=== PATIENT | male | born 1930 | race Caucasian/White ===

== ENCOUNTER 2017-01-05 09:51 | Emergency (ER) | payer MEDICARE ==
--- NOTE | 2017-01-05 10:04 | ED ---
General Adult HPI - General Chief complaint: Altered Mental Status Stated complaint: Fall-Altered Mental Status Time Seen by Provider: 01/05/17 09:51 Source: family, EMS, RN notes reviewed Mode of arrival: EMS Limitations: altered mental status, physical limitation - History of Present Illness Initial comments: Patient is an 86-year-old male presenting to the emergency department for change in mental status. Patient is unresponsive and history comes from . states patient did fall in the middle of the night and she did help him get back into bed. No known serious injury. did see the patient briefly this morning and felt she was acting normal. Patient then heard a large boom sometime after 9:00 and patient was on the ground. EMS states patient was alert but nonverbal. Patient did follow some commands. Patient is nonverbal at this time and does not follow commands. - Related Data Home Medications Medication Instructions Recorded Confirmed Gemfibrozil [Lopid] 600 mg PO BID 09/07/14 01/05/17 Omeprazole [PriLOSEC] 20 mg PO DAILY 09/07/14 01/05/17 Vit C/E/Zn/Coppr/Lutein/Zeaxan 1 tab PO BID 09/07/14 01/05/17 [Preservision Areds 2 Softgel] amLODIPine BESYLATE [Amlodipine 10 mg PO HS 09/07/14 01/05/17 Besylate] Carbidopa-Levodopa 25-100 mg 0.5 tab PO TID 12/13/16 01/05/17 [Sinemet 25-100] ALPRAZolam [Xanax] 0.25 mg PO BID PRN 01/05/17 01/05/17 Citalopram Hydrobromide [CeleXA] 20 mg PO DAILY 01/05/17 01/05/17 Donepezil [Aricept] 20 mg PO HS 01/05/17 01/05/17 Gabapentin [Neurontin] 100 mg PO BID 01/05/17 01/05/17 Multivitamins, Thera [Multivitamin 1 tab PO DAILY 01/05/17 01/05/17 (formulary)] Zolpidem [Ambien] 10 mg PO HS PRN 01/05/17 01/05/17 Allergies Allergy/AdvReac Type Severity Reaction Status Date / Time chlorpheniramine Allergy Unknown Verified 01/05/17 10:22 pseudoephedrine Allergy Unknown Verified 01/05/17 10:22 Sulfa (Sulfonamide Allergy Rash/Hives Verified 01/05/17 10:22 Antibiotics) Review of Systems ROS Statement: Those systems with pertinent positive or pertinent negative responses have been documented in the HPI. ROS Other: All systems not noted in ROS Statement are negative. 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 MACULAR DEGENERATION, SPOUSE STATES THAT HE GET DIZZY AND SHAKES AT TIMES WHEN HE GETS UP. HX OF KIDNEY STONES, PREV. SLEEP APNEA, NONE NOW POST SX. History of Any Multi-Drug Resistant Organisms: None Reported Past Surgical History: Cholecystectomy, Heart Catheterization, Orthopedic Surgery, Tonsillectomy Additional Past Surgical History / Comment(s): HIATAL HERNIA REPAIR, SOFÍA ROTATOR CUFF REPAIR, MULT LITHOTRIPSY, LEFT CAROTIDENDARTECTOMY, SX TO FIX SLEEP APNEA, CYTOSCOPY FOR PROSTATE ISSUES Past Anesthesia/Blood Transfusion Reactions: No Reported Reaction Past Psychological History: No Psychological Hx Reported Smoking Status: Former smoker Past Alcohol Use History: None Reported Past Drug Use History: None Reported - Past Family History Mother Family Medical History: No Reported History General Exam Limitations: altered mental status, physical limitation General appearance: lethargic, other (Patient does withdraw to pain. Gag reflex is present.) Head exam: Present: atraumatic, normocephalic Eye exam: Present: normal appearance, PERRL, other (Spontaneous oscalating eye movements) ENT exam: Present: normal oropharynx, other (Gag reflex is present) Neck exam: Present: other (C-collar is in place. No step-off.) Respiratory exam: Present: normal lung sounds bilaterally Cardiovascular Exam: Present: bradycardia GI/Abdominal exam: Present: soft. Absent: tenderness Extremities exam: Present: normal inspection Neurological exam: Present: altered Expanded Neurological exam: Present: protecting the airway Eye Response: (1) no response Motor Response: (4) withdraws to pain Verbal Response: (1) no verbal response Psychiatric exam: Present: other (Nonverbal) Skin exam: Absent: rash Course Vital Signs 01/05/17 01/05/1717 09:56 10:30 11:00 Temperature 97.7 F Pulse Rate 55 L 46 L 47 L Respiratory 18 18 18 Rate Blood Pressure 184/81 155/69 164/77 O2 Sat by Pulse 99 99 98 Oximetry 01/05/17 11:55 Temperature 96.7 F L Pulse Rate 49 L Respiratory 14 Rate Blood Pressure 167/81 O2 Sat by Pulse 99 Oximetry - Reevaluation(s) Reevaluation #1: 01/05/17 12:01 Call received from radiologist with concerning head CT results. and son were updated. Case was discussed with Dr. Howard at [facility]. He will likely except transfer however needs to talk to trauma first. 01/05/17 12:15 Dr. Howard called back and will accept transfer. EKG Findings - EKG Comments: EKG Findings:: Sinus bradycardia 49. CA 188. QRS 146. QT 534. QTC 582. Normal axis. Right bundle branch block. Nonspecific ST-T. Motion artifact is present. Procedures - Intubation Time Out Performed: Yes Sedative: Versed Mg Given: 4 Paralytic: Succinylcholine Mg Given: 80 Laryngoscope: García Size: 3 ET Tube Size: 7.5 Tube Placement Confirmation: visualized tube passing through cords, equal breath sounds bilaterally, no breath sounds over epigastrium, confirmation by capnometry Patient Tolerated Procedure: well, no complications Intubation Complications: none Medical Decision Making - Lab Data Result diagrams: 01/05/17 10:02 01/05/17 10:02 Lab Results 01/05/17 01/05/17 01/05/17 Range/Units 09:53 10:02 10:02 WBC 4.0 (3.8-10.6) k/uL RBC 4.23 L (4.30-5.90) m/uL Hgb 12.7 L (13.0-17.5) gm/dL Hct 39.5 (39.0-53.0) % MCV 93.5 (80.0-100.0) fL MCH 30.0 (25.0-35.0) pg MCHC 32.1 (31.0-37.0) g/dL RDW 14.2 (11.5-15.5) % Plt Count 358 (150-450) k/uL Neutrophils % 71 % Lymphocytes % 15 % Monocytes % 7 % Eosinophils % 2 % Basophils % 0 % Neutrophils # 2.8 (1.3-7.7) k/uL Lymphocytes # 0.6 L (1.0-4.8) k/uL Monocytes # 0.3 (0-1.0) k/uL Eosinophils # 0.1 (0-0.7) k/uL Basophils # 0.0 (0-0.2) k/uL PT (9.0-12.0) sec INR (<1.2) APTT (22.0-30.0) sec Sodium (137-145) mmol/L Potassium (3.5-5.1) mmol/L Chloride (98-107) mmol/L Carbon Dioxide (22-30) mmol/L Anion Gap mmol/L BUN (9-20) mg/dL Creatinine (0.66-1.25) mg/dL Est GFR (MDRD) Af Amer (>60 ml/min/1.73 sqM) Est GFR (MDRD) Non-Af (>60 ml/min/1.73 sqM) Glucose (74-99) mg/dL POC Glucose (mg/dL) 96 (75-99) mg/dL POC Glu Trackwalker ID Michelle Alexis Calcium (8.4-10.2) mg/dL Total Bilirubin (0.2-1.3) mg/dL AST (17-59) U/L ALT (21-72) U/L Alkaline Phosphatase (38-126) U/L Total Creatine Kinase 27 L (55-170) U/L CK-MB (CK-2) 0.5 (0.0-2.4) ng/mL CK-MB (CK-2) Rel Index 1.9 Troponin I <0.012 (0.000-0.034) ng/mL Total Protein (6.3-8.2) g/dL Albumin (3.5-5.0) g/dL Urine Color Urine Appearance (Clear) Urine pH (5.0-8.0) Ur Specific [place] (1.001-1.035) Urine Protein (Negative) Urine Glucose (UA) (Negative) Urine Ketones (Negative) Urine Blood (Negative) Urine Nitrite (Negative) Urine Bilirubin (Negative) Urine Urobilinogen (<2.0) mg/dL Ur Leukocyte Esterase (Negative) Urine Opiates Screen (NotDetected) Ur Oxycodone Screen (NotDetected) Urine Methadone Screen (NotDetected) Ur Propoxyphene Screen (NotDetected) Ur Barbiturates Screen (NotDetected) U Tricyclic Antidepress (NotDetected) Ur Phencyclidine Scrn (NotDetected) Ur Amphetamines Screen (NotDetected) U Methamphetamines Scrn (NotDetected) U Benzodiazepines Scrn (NotDetected) Urine Cocaine Screen (NotDetected) U Marijuana (THC) Screen (NotDetected) 01/05/17 01/05/17 01/05/17 Range/Units 10:02 10:02 11:43 WBC (3.8-10.6) k/uL RBC (4.30-5.90) m/uL Hgb (13.0-17.5) gm/dL Hct (39.0-53.0) % MCV (80.0-100.0) fL MCH (25.0-35.0) pg MCHC (31.0-37.0) g/dL RDW (11.5-15.5) % Plt Count (150-450) k/uL Neutrophils % % Lymphocytes % % Monocytes % % Eosinophils % % Basophils % % Neutrophils # (1.3-7.7) k/uL Lymphocytes # (1.0-4.8) k/uL Monocytes # (0-1.0) k/uL Eosinophils # (0-0.7) k/uL Basophils # (0-0.2) k/uL PT 10.8 (9.0-12.0) sec INR 1.1 (<1.2) APTT 24.4 (22.0-30.0) sec Sodium 140 (137-145) mmol/L Potassium 4.0 (3.5-5.1) mmol/L Chloride 105 (98-107) mmol/L Carbon Dioxide 28 (22-30) mmol/L Anion Gap 7 mmol/L BUN 15 (9-20) mg/dL Creatinine 0.86 (0.66-1.25) mg/dL Est GFR (MDRD) Af Amer >60 (>60 ml/min/1.73 sqM) Est GFR (MDRD) Non-Af >60 (>60 ml/min/1.73 sqM) Glucose 86 (74-99) mg/dL POC Glucose (mg/dL) (75-99) mg/dL POC Glu Trackwalker ID Calcium 9.8 (8.4-10.2) mg/dL Total Bilirubin 0.4 (0.2-1.3) mg/dL AST 22 (17-59) U/L ALT 21 (21-72) U/L Alkaline Phosphatase 272 H (38-126) U/L Total Creatine Kinase (55-170) U/L CK-MB (CK-2) (0.0-2.4) ng/mL CK-MB (CK-2) Rel Index Troponin I (0.000-0.034) ng/mL Total Protein 6.5 (6.3-8.2) g/dL Albumin 3.6 (3.5-5.0) g/dL Urine Color Light Yellow Urine Appearance Clear (Clear) Urine pH 8.0 (5.0-8.0) Ur Specific [place] 1.007 (1.001-1.035) Urine Protein Negative (Negative) Urine Glucose (UA) Negative (Negative) Urine Ketones Negative (Negative) Urine Blood Negative (Negative) Urine Nitrite Negative (Negative) Urine Bilirubin Negative (Negative) Urine Urobilinogen <2.0 (<2.0) mg/dL Ur Leukocyte Esterase Negative (Negative) Urine Opiates Screen Not Detected (NotDetected) Ur Oxycodone Screen Not Detected (NotDetected) Urine Methadone Screen Not Detected (NotDetected) Ur Propoxyphene Screen Not Detected (NotDetected) Ur Barbiturates Screen Not Detected (NotDetected) U Tricyclic Antidepress Detected H (NotDetected) Ur Phencyclidine Scrn Not Detected (NotDetected) Ur Amphetamines Screen Not Detected (NotDetected) U Methamphetamines Scrn Not Detected (NotDetected) U Benzodiazepines Scrn Detected H (NotDetected) Urine Cocaine Screen Not Detected (NotDetected) U Marijuana (THC) Screen Not Detected (NotDetected) - Radiology Data Radiology results: image reviewed (Chest x-ray shows no acute process. X-ray of the pelvis shows no acute process. Computed tomography scan of the brain shows small left greater than right frontal subarachnoid hemorrhage. Tiny right subdural hemorrhage only 3-4 mm thick. The basilar artery tip is also prominent. Computed tomography scan of the cervical spine shows degenerative changes. No acute fracture.) Interpreted by me: Post endotracheal intubation with tube in appropriate place. Critical Care Time Critical Care Time: Yes Total Critical Care Time: 38 Disposition Clinical Impression: Subdural hemorrhage, Subarachnoid hemorrhage Disposition: OTHER INSTITUTION NOT DEFINED Condition: Critical Referrals: Nimesh Fontaine MD [Primary Care Provider] - 1-2 days Time of Disposition: 12:16 - Out of Hospital Transfer - Req. Specs Out of Hospital Transfer - Requested Specifics: Other Emergency Center
[2017-01-05 10:05] LABS: Glucose,Whole Blood 96 mg/dL (75-99)
[2017-01-05 10:29] LABS: Basophils % (A) 0 %; CHCM 33.3; Eosinophils # (A) 0.1 k/uL (0-0.7); Eosinophils % (A) 2 %; HCT 39.5 % (39.0-53.0); HDW 2.67; HGB 12.7 gm/dL (13.0-17.5); Luc # (Auto) 0.17; Luc % (Auto) 4; Lymphocytes # (A) 0.6 k/uL (1.0-4.8); Lymphocytes % (A) 15 %; MCHC 32.1 g/dL (31.0-37.0); MCV 93.5 fL (80.0-100.0); Mean Platelet Volume 6.6; Monocytes # (A) 0.3 k/uL (0-1.0); Monocytes % (A) 7 %; Neutrophils # (A) 2.8 k/uL (1.3-7.7); Neutrophils % (A) 71 %; RBC 4.23 m/uL (4.30-5.90); RDW 14.2 % (11.5-15.5); WBC (Perox) 3.96
[2017-01-05 10:37] LABS: INR 1.1 (<1.2); Partial Thromboplastin Time 24.4 sec (22.0-30.0); Prothrombin Time 10.8 sec (9.0-12.0)
[2017-01-05 10:42] LABS: ALT 21 U/L (21-72); AST 22 U/L (17-59); Alkaline Phosphatase 272 U/L (38-126); Anion Gap 7 mmol/L; Blood Urea Nitrogen 15 mg/dL (9-20); Calcium 9.8 mg/dL (8.4-10.2); Carbon Dioxide 28 mmol/L (22-30); Chloride 105 mmol/L (98-107); Glucose 86 mg/dL (74-99); Non-African American GFR(MDRD) >60 (>60 ml/min/1.73 sqM); Sodium 140 mmol/L (137-145); Total Bilirubin 0.4 mg/dL (0.2-1.3); Total Protein 6.5 g/dL (6.3-8.2)
[2017-01-05 10:50] LABS: Creatine Kinase 27 U/L (55-170)
[2017-01-05 11:02] LABS: Creatine Kinase MB 0.5 ng/mL (0.0-2.4); Troponin I <0.012 ng/mL (0.000-0.034)
--- NOTE | 2017-01-05 11:42 | XR ---
EXAMINATION TYPE: XR pelvis AP view DATE OF EXAM: 01/05/2017 CLINICAL HISTORY: Fall injury today with pain. TECHNIQUE: A single AP view of the pelvis is obtained. COMPARISON: None. FINDINGS: There is no acute fracture/dislocation evident in the pelvis. There is mild axial joint sp bree loss in both hips. Right sacroiliac joint is not well-visualized due to demineralization and slig ht rotation. Pubic symphysis is intact. Vascular calcification bilateral pelvis and left groin region is present. IMPRESSION: There is no acute fracture or dislocation in the pelvis.
--- NOTE | 2017-01-05 11:45 | XR ---
EXAMINATION TYPE: XR chest 1V portable DATE OF EXAM: 01/05/2017 COMPARISON: Prior chest x-ray 12/13/2016 HISTORY: Trauma, unresponsive, altered mental status TECHNIQUE: Single frontal view of the chest is obtained. FINDINGS: There is no focal air space opacity, pleural effusion, or pneumothorax seen. The cardiac silhouette size is within normal limits. Distal left clavicle shows resection change as on prior, po stop change also noted to the right shoulder. Patient is rotated. There are overlying cardiac leads. The osseous structures are intact. The aorta is dense. Surgical clips present in the right upper quad rant. IMPRESSION: No acute process. Expiratory rotated exam, follow-up as indicated
--- NOTE | 2017-01-05 11:56 | CT ---
EXAMINATION TYPE: CT brain lavelle vivar DATE OF EXAM: 01/05/2017 COMPARISON: Brain 11/13/2014 HISTORY: 86-year-old male Fall, altered mental status CT DLP: 1711 mGycm Automated exposure control for dose reduction was used. Technique: Examination of the head was done in axial plane without intravenous contrast. Coronal and sagittal reconstructions performed. CT of the cervical spine was obtained in axial plane without intravenous injection of contrast mater ial. Coronal and sagittal reformatted images were obtained from the axial views for evaluation of f ractures, spinal alignment and canal. FINDINGS: Head: There is mild subarachnoid hemorrhage in the anterior left frontal lobe, refer to axial image 39 and 43. Minimal subarachnoid blood in the anterior right paramedian frontal lobe, axial image 43 and 44. Trace extra-axial acute blood along the lateral right frontal convexity, axial image 37 measuring 3 t o 4 mm thick. Stable [id number]-[id number] ventriculomegaly as compared to 11/13/2014 and moderate patchy white matter hy podensities in both cerebral hemispheres. Rounded prominence at the basilar terminus measuring 5 mm, axial image 24. No evidence for acute ischemic change, mass, mass effect, or midline shift. No effacement of cerebral sulci or basal subarachnoid cisterns. Small air-fluid level in the right sphenoid sinus. Mastoid air cells appear well pneumatized. Orbits and globes appear intact. No calvarial fracture. Cervical spine: No craniocervical junction abnormality, predental space widening, or prevertebral soft tissue swellin g. Degenerative changes at the C1-C2 dens articulation. Moderate to advanced disc/endplate degenerative change from C3 through T1 levels. Grade 1 anterolisthesis at C7-T1 with facet and uncovertebral joint arthropathy throughout. Very minimal mild narrowing of the spinal canal secondary to disc osteophyte complexes throughout. No acute fracture seen. Very minimal mild neuroforaminal stenosis. Sagittal and coronal reformatted images confirm above findings. COMBINED IMPRESSION: BRAIN: 1. Small amount of acute subarachnoid hemorrhage in the left greater than right frontal lobes. 2. Trace 3 to 4 mm thick acute subdural hematoma along the lateral aspect of the right frontal convex ity. 3. No mass effect or midline shift. 4. When able, patient can have a follow-up CTA or MRA to exclude a 5 mm basilar tip aneurysm. Above findings called to Dr. Alexis in the ER at 11:50 AM. 6. Stable ventriculomegaly likely due to central cerebral atrophy. 7. Small air-fluid level in the right sphenoid sinus could represent acute sinusitis. CERVICAL SPINE: 8. No acute fracture of the cervical spine. Moderate to advanced multilevel spondylotic change. Degen erative grade 1 anterolisthesis at C7-T1.
[2017-01-05] MEDS ORDERED: MIDAZOLAM 2 MG/2 ML VIAL IV STA (11:57)
[2017-01-05] MEDS ORDERED: SUCCINYLCHOLINE CHLORIDE VIAL 200 MG/10 ML VIAL IV STA (11:57)
[2017-01-05] MEDS ORDERED: LORazepam 2 MG/ML INJ IV PRN ×2 (11:58)
[2017-01-05 11:59] LABS: Appearance,Urine Clear (Clear); Bilirubin,Urine Negative (Negative); Glucose,Urine (UA) Negative (Negative); Ketones,Urine Negative (Negative); Leukocyte Esterase,Urine Negative (Negative); Nitrite,Urine Negative (Negative); Protein,Urine Negative (Negative); Specific Gravity,Urine 1.007 (1.001-1.035); UA Billing (MACRO vs. MICRO) CHEM; Urobilinogen,Urine <2.0 mg/dL (<2.0)
[2017-01-05] MEDS ORDERED: PROPOFOL 1,000 MG/100 ML VIAL IV SCH (12:00)
--- NOTE | 2017-01-05 12:30 | XR ---
EXAMINATION TYPE: XR chest 1V portable DATE OF EXAM: 01/05/2017 Comparison: 01/05/2017 Clinical History: 86-year-old male Tube placement Findings: ET tube tip located 1.1 cm from the margaret. This could be pulled back 2.5 cm. Excessive lordotic posi tioning limiting assessment of the lung bases. Heart appears upper limits of normal in size. Strandy atelectasis in the lower lungs. No consolidation or pleural effusion. Impression: 1. ET tube tip only 1.1 cm from the margaret. This could be pulled back 2.5 cm. 2. Strandy lower lung atelectasis.
[2017-01-05 13:25] VITALS: BP 130/68; PULSE 52; RESP 16; TEMP 97.2
[2017-01-05 14:53] LABS: ABG PCO2 28 mmHg (35-45)
[2017-01-05 14:55] LABS: ABG Base Excess -1.3 mmol/L; ABG HCO3 21 mmol/L (21-25); ABG PO2 356 mmHg (83-108); ABG TCO2 22 mmol/L (19-24)
[2017-01-05] MEDS ORDERED: CHLORHEXIDINE GLUCONATE 15 ML CUP MUCOUS MEM SCH (21:00)
== END 2017-01-05 13:29 | disposition other institution (70) ==
LOC: EC 09:51
DX: I60.9 Nontraumatic subarachnoid hemorrhage, unspecified (principal); I62.00 Nontraumatic subdural hemorrhage, unspecified; R00.1 Bradycardia, unspecified; I45.10 Unspecified right bundle-branch block; K21.9 Gastro-esophageal reflux disease without esophagitis; E78.5 Hyperlipidemia, unspecified; I10 Essential (primary) hypertension; Z95.5 Presence of coronary angioplasty implant and graft; Z88.2 Allergy status to sulfonamides; Z88.8 Allergy status to other drugs, medicaments and biological substances; Z79.899 Other long term (current) drug therapy; Z87.891 Personal history of nicotine dependence
CPT/HCPCS: 99291 ×2; 31500 ×2; 96365 ×2; 96375 ×2; 36415; 36600; 94002; 93005; 80053; 82550; 82553; 82805; 84484; 85025; 85610; 85730; 81003; 80306; 83036; 71010; 72170; 72125; 70450; J2250; J0330; J2060; J2704